=== PATIENT | male | born 1950 | race Caucasian/White ===

== ENCOUNTER 2020-02-01 05:39 | Day surgery (SDC) | payer MEDICARE ==
[2020-01-29 13:38] LABS: BASOPHILS % (AUTO) 1 % (0-1); EOSINOPHILS % (AUTO) 0 % (1-7); LYMPHOCYTES % (AUTO) 35 % (22-44); MD NO; MEAN CORPUSCULAR HEMOGLOBIN 32.7 pg (27.5-34.5); MEAN CORPUSCULAR HGB CONC 34.1 g/dL (33.2-36.2); MEAN PLATELET VOLUME 8.2 fL (7.4-10.4); MONOCYTES % (AUTO) 10 % (2-9); NEUTROPHILS % (AUTO) 55 % (42-75); PLATELET COUNT 251 x10^3/uL (130-400); RED BLOOD COUNT 4.57 x10^6/uL (4.38-5.82); RED CELL DISTRIBUTION WIDTH 13.1 % (9.4-14.8)
[2020-01-29 13:43] LABS: ANION GAP 7 mmol/L (5-15); CALCIUM 9.4 mg/dL (8.5-10.1); CHLORIDE 107 mmol/L (98-107)
[2020-01-29 13:46] LABS: CREATININE 0.99 mg/dL (0.7-1.3)
[2020-01-29 13:47] LABS: INTERNATIONAL NORMALIZED RATIO 0.99 (0.93-1.1); PROTHROMBIN TIME 10.5 Seconds (9.6-11.5)
[~2020-02-01] VITALS: Ht 177.8 cm; Wt 78.0 kg
[~2020-02-01 05:39] MED LIST: ASCO100019 PO; MAGN400C PO
[2020-02-01 06:22] VITALS: BP 113/71
[2020-02-01] MEDS ORDERED: CHLORHEXIDINE 15 ML UDC ONE (06:27)
[2020-02-01] MEDS ORDERED: CHLORHEXIDINE 15 ML UDC MM ONE (06:30)
[2020-02-01] MEDS ORDERED: LACTATED RINGERS 1,000 ML IV SCH (06:30)
[2020-02-01] MEDS ORDERED: LIDOCAINE-MPF 1%, 2ML INFIL ONE (06:30)
[2020-02-01] MEDS ORDERED: BUPIVACAINE/PF 0.5% ONE (07:23)
[2020-02-01] MEDS ORDERED: FENTANYL PF 100 MCG/2ML ONE (07:24)
[2020-02-01] MEDS ORDERED: EPINEPHRINE 1 MG/ML, 1ML ONE (07:24)
[2020-02-01] MEDS ORDERED: methylPREDNISolone SOD SUCC 125 MG/2 ML ONE (07:24)
[2020-02-01] MEDS ORDERED: BACITRACIN 50,000 UNIT ONE (07:24)
[2020-02-01] MEDS ORDERED: FENTANYL PF 250 MCG/5ML ONE (07:41)
[2020-02-01] MEDS ORDERED: LIDOCAINE-MPF 1%, 2ML ONE (07:59)
[2020-02-01] MEDS ORDERED: ROCURONIUM 10MG/ML,5ML ONE (07:59)
[2020-02-01] MEDS ORDERED: DEXAMETHASONE 4 MG/ML, 1ML ONE (07:59)
[2020-02-01] MEDS ORDERED: SUCCINYLCHOLINE 20 MG/ML, 10ML ONE (07:59)
[2020-02-01] MEDS ORDERED: CEFAZOLIN 1,000 MG ONE (07:59)
[2020-02-01] MEDS ORDERED: ONDANSETRON 2MG/ML, 2ML ONE (07:59)
[2020-02-01] MEDS ORDERED: PROPOFOL 50 ML ONE ×2 (08:15→09:10)
[2020-02-01] MEDS ORDERED: ONDANSETRON 2MG/ML, 2ML IVPush PRN (09:00)
[2020-02-01] MEDS ORDERED: MEPERIDINE/PF 25MG/0.5ML IVPush PRN (09:00)
[2020-02-01] MEDS ORDERED: LABETALOL 5MG/ML, 20ML IV PRN (09:00)
[2020-02-01] MEDS ORDERED: METHOCARBAMOL 1,000 MG in DEXTROSE 5% 100 ML IV PRN (09:00)
[2020-02-01] MEDS ORDERED: hydrALAzine 20 MG/ML, 1ML IV PRN (09:00)
[2020-02-01] MEDS ORDERED: FENTANYL PF 100 MCG/2ML IV PRN (09:00)
[2020-02-01] MEDS ORDERED: HYDROmorphone 1 MG/ML, 1ML INJ IVPush PRN (09:00)
[2020-02-01] MEDS ORDERED: OXYcodone 5 MG/5 ML ORAL.SOL UDC PO PRN (09:00)
[2020-02-01] MEDS ORDERED: EPHEDRINE 50 MG/ML, 1ML IVPush PRN (09:00)
[2020-02-01] MEDS ORDERED: PROMETHAZINE 25 MG/ML, 1ML IVPush PRN (09:00)
[2020-02-01] MEDS ORDERED: ACETAMINOPHEN 325 MG TABLET PO PRN (09:00)
[2020-02-01] MEDS ORDERED: LORazepam 2 MG/ML, 1ML IVPush PRN (09:00)
== END 2020-02-01 12:30 | disposition home or self-care (01) ==
LOC: OUT 05:39 → EDSTATUS 10:00 → OUT 12:30
PROVIDERS: ATTEND Neurological Surgery
DX: M51.16 Intervertebral disc disorders with radiculopathy, lumbar region (principal); Z20.828 Contact with and (suspected) exposure to other viral communicable diseases; Z79.01 Long term (current) use of anticoagulants; Z79.82 Long term (current) use of aspirin; Z79.899 Other long term (current) drug therapy; Z88.8 Allergy status to other drugs, medicaments and biological substances; Z98.890 Other specified postprocedural states; Z82.61 Family history of arthritis; Z83.3 Family history of diabetes mellitus
CPT/HCPCS: 36415; 63030; 72100; 80048; 85025; 85610; 85730; 87635; 93005; J0171; J0330; J0690; J1100; J2405; J2704; J2930; J3010; J7120